=== PATIENT | female | born 1980 | race African-American/Black ===

== ENCOUNTER 2016-09-14 21:28 | Emergency (ER) | payer OTHER ==
[~2016-09-14] VITALS: Ht 180.3 cm; Wt 69.0 kg
[~2016-09-14 21:28] MED LIST: DEPO150I IM; METR0.7512 VAGINAL
[2016-09-14 21:29] VITALS: BP 130/101; PULSE 98; RESP 15; TEMP 98.7; O2SAT 99
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
[2016-09-14] MEDS ORDERED: SODIUM CHLORIDE 0.9% FLUSH 10 ML FLUSH IVF PRN (22:00)
[2016-09-14 22:08] VITALS: O2SAT 100
--- NOTE | 2016-09-14 22:12 | RADRPT ---
EXAM DATE/TIME: 09/14/2016 21:58 [facility] COMPARISON: No previous studies available for comparison. INDICATIONS : Chest pain and shortness of breath. MEDICAL HISTORY : None. SURGICAL HISTORY : None. ENCOUNTER: Initial ACUITY: 3 days PAIN SCORE: 9/10 LOCATION: Bilateral chest FINDINGS: A single view of the chest demonstrates the lungs to be symmetrically aerated without evidence of mas s, infiltrate or effusion. The cardiomediastinal contours are unremarkable. Osseous structures are intact. CONCLUSION: No evidence of acute cardiopulmonary disease. Yo Chowdhury MD on September 14, 2016 at 22:10 Board Certified Radiologist. This report was verified electronically.
[2016-09-14 22:30] LABS: AUTOMATED NEUTROPHIL # 4.1 TH/MM3 (1.8-7.7); BASOPHIL % 0.5 % (0.0-2.0); EOSINOPHIL # 0.1 TH/MM3 (0-0.4); EOSINOPHIL % 1.1 % (0.0-4.0); HEMATOCRIT 35.4 % (35.0-46.0); HEMO FLAGS DIFF FINAL; LYMPH % 23.7 % (9.0-44.0); LYMPHOCYTE # 1.5 TH/MM3 (1.0-4.8); MEAN CELL VOLUME 87.4 FL (80.0-100.0); MEAN CORPUSCULAR HGB CONC 33.2 % (32.0-36.0); MONO % 9.8 % (0.0-8.0); NEUT % 64.9 % (16.0-70.0); PLATELET COUNT 227 TH/MM3 (150-450); RED BLOOD COUNT 4.05 MIL/MM3 (4.00-5.30); RED CELL DISTRIBUTION WIDTH 13.2 % (11.6-17.2); WHITE BLOOD COUNT 6.4 TH/MM3 (4.0-11.0)
[2016-09-14 22:41] LABS: ANION GAP 8 MEQ/L (5-15); AST (GOT) 16 U/L (15-37); BICARBONATE 28.1 MEQ/L (21.0-32.0); BLOOD UREA NITROGEN 11 MG/DL (7-18); CHLORIDE 104 MEQ/L (98-107); GLOMERULAR FILTRATION RATE 65 ML/MIN (>89); POTASSIUM 3.6 MEQ/L (3.5-5.1); SODIUM (NA) 140 MEQ/L (136-145)
[2016-09-14 22:46] LABS: ALKALINE PHOSPHATASE 31 U/L (45-117); ALT (GPT) 16 U/L (10-53); TOTAL BILIRUBIN ADULT 0.6 MG/DL (0.2-1.0)
[2016-09-15] VITALS: BP 110/69
--- NOTE | 2016-09-15 10:04 | EKG ---
Date Performed: 09/14/2016 Time Performed: 21:45:48 PTAGE: 36 years EKG: Sinus rhythm NORMAL ECG PREVIOUS TRACING : 06/08/2015 04.07 DOCTOR: Silvina Rose Interpretating Date/Time 09/15/2016 10:02:54
== END 2016-09-15 00:02 | disposition home or self-care (01) ==
LOC: NEPE 21:28
DX: R07.89 Other chest pain (principal)
CPT/HCPCS: 71010; 80053; 84484; 85025; 93005